=== PATIENT | male | born 1965 | race Caucasian/White ===

== ENCOUNTER 2016-06-29 20:15 | Emergency (ER) | payer MEDICARE, MEDICAID ==
[2015-11-03 10:39] VITALS: BMI 35.5
[~2016-06-29 20:15] MED LIST: BACTRIM DS TABL1 TAB PO; JANUMET 50-1,001 TAB PO; LOVASTATIN40 MG PO; NICODERM C1 PATCH .1 TRANSDERM; ROXICODONE15 MG PO; SYNTHROID25 MCG PO; TRIGLIDE160 MG PO; VITAMIN B-12100 MCG PO; VITAMIN D31000 UNI2 PO; ZANAFLEX4 MG PO
[2016-06-29 22:31] LABS: BASOPHILS 0.3 % (0.0-2.0); EOSINOPHILS 4.6 % (0-7); HEMATOCRIT 41.7 % (42.0-54.0); HEMOGLOBIN 14.2 g/dL (13.5-17.5); IMMATURE GRANULOCYTES 0.2 % (0-5); LYMPHOCYTES 37.8 % (15-50); MCH 31.1 pg (26.0-34.0); MCHC 34.1 g/dL (31.0-37.0); MCV 91.4 fL (80.0-100.0); MEAN PLATELET VOLUME 10.1 fL (7.4-10.4); MONOCYTES 6.8 % (2-11); NEUTROPHILS 50.3 % (40-80); PLATELET COUNT 211 10x3/uL (130-400); RBC 4.56 10x6/uL (4.20-6.10); RDW 12.9 % (11.5-14.5); WBC 9.2 10x3/uL (4.8-10.8)
[2016-06-29 22:39] LABS: APPEARANCE CLEAR (CLEAR); BILIRUBIN NEGATIVE (NEGATIVE); COLOR YELLOW (YELLOW); GLUCOSE NEGATIVE (NEGATIVE); KETONE NEGATIVE (NEGATIVE); LEUKOCYTE ESTERASE NEGATIVE (NEGATIVE); NITRITE NEGATIVE (NEGATIVE); PROTEIN NEGATIVE (NEGATIVE); SPECIFIC GRAVITY 1.025 (1.005-1.020); UROBILINOGEN NORMAL (NORMAL)
[2016-06-29 22:54] LABS: ALKALINE PHOSPHATASE 66 U/L (46-116); ALT (SGPT) 33 U/L (10-68); AMYLASE - SERUM 46 U/L (25-115); BILIRUBIN - TOTAL 0.19 mg/dL (0.2-1.3); CALC OSMOLALITY 283 mosm/kg (275-300); CALCIUM 9.5 mg/dL (8.5-10.1); CARBON DIOXIDE 29.8 mmol/L (21.0-32.0); CHLORIDE - SERUM 103 mmol/L (98-107); CREATININE - SERUM 1.1 mg/dL (0.6-1.3); GLUCOSE 149 mg/dL (74-106); LIPASE 306 U/L (73-393); POTASSIUM - SERUM 3.4 mmol/L (3.5-5.1); PRO BNP 18 pg/mL (0-125); PROTEIN - SERUM 7.5 g/dL (6.4-8.2); SODIUM 140 mmol/L (136-145); UREA NITROGEN 19 mg/dL (7-18); eGFR NON AFRICAN AMERICAN 75 mL/min (90-120)
== END 2016-06-30 02:38 | disposition home or self-care (01) ==
LOC: D.ER 20:15
PROVIDERS: Emergency Medicine
DX: R10.9 Unspecified abdominal pain (principal); E11.9 Type 2 diabetes mellitus without complications; E78.5 Hyperlipidemia, unspecified; M54.9 Dorsalgia, unspecified; E03.9 Hypothyroidism, unspecified; F17.200 Nicotine dependence, unspecified, uncomplicated

== ENCOUNTER → 2016-08-31 08:19 | Outpatient (CLI) | payer MEDICARE, MEDICAID ==
[2015-11-03 10:39] VITALS: BMI 35.5
== END ==
LOC: D.MRI 08:00
DX: M54.5 Low back pain (principal)